=== PATIENT | male | born 1995 | race Caucasian/White ===

== ENCOUNTER 2024-10-15 15:05 | Outpatient (AMB) | payer BC, SELFPAY ==
--- NOTE | 2024-10-15 15:12 | A.OFFPC_ITS ---
Vital Signs 10/15/24 15:22 Height 5 ft 9 in Weight 197 lb BMI 29.1 BP 120/70 Blood Pressure Location Rt brachial Position Sitting Respiration 14 Pulse 89 Pulse Source Pulse Oximeter Temp 98.1 F Temp Source Oral Pulse Oximetry (%) 98 Oxygen Delivery Method Room Air Intake Visit Reasons: Annual PE Intake Note: establish care Allergies No Known Allergies Allergy (Verified 10/15/24 15:19) Medication List - Last Reconciled 10/15/24 by Kye Rossi MD No Known Home Meds Tobacco use date assessed: 10/15/24 Dental Screening Dental Screen Date: 10/15/24 Did you have a dental visit in the last 12 months?: Yes Did you have a dental problem in the last 6 months where you did not have access to dental care?: Yes HPI Annual PE HPI Details New?patient Prior?PCP: Leodan Flores MD Part of [facility] [place] Last?office?visit/CPE: > 2 yrs Acute?issue(s): Throat Clearing & he questions acid reflux. Allergies Poor sleep Difficulty concentrating Pt states had childhood dx of Concerta PMHx: Childhood ADHD SurgHx: [place] teeth FHx: Mom: ETOH. SocHx: Quit cigs 3 yrs ago. Uses nicotine gum. EtOH monthly 3-4 drEscobar No drugs [facility] Medical History (Updated 10/15/24 @ 15:44 by Chad Candelaria) Difficulty concentrating Depression Acute adjustment disorder with anxiety GERD (gastroesophageal reflux disease) Sinusitis Surgical History (Updated 10/15/24 @ 15:15 by Yesy Benavides CMA) [place] teeth extracted Family History Mother Substance abuse FH: mental illness Alcohol abuse Maternal Grandfather Substance abuse Cancer Alcohol abuse Family/Other Substance abuse Paternal Grandfather Stomach cancer Social History (Updated 10/15/24 @ 15:18 by Yesy Benavides CMA) Housing: Condominium Patient Tobacco Use Status: Never used Tobacco e-Cigarette/Vaping Use: Never Used Substance Use Type: Marijuana service: No Current occupational status: employed 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 1. Little interest or pleasure in doing things: several days 2. Feeling down, depressed, or hopeless: not at all 3. Trouble falling or staying asleep, or sleeping too much: several days 4. Feeling tired or having little energy: not at all 5. Poor appetite or overeating: not at all 6. Feeling bad about yourself - or that you are a failure or have let yourself or your family down: not at all 7. Trouble concentrating on things, such as reading the newspaper or watching television: several days 8. Moving or speaking so slowly that other people could have noticed. Or the opposite - being so fidgety or restless that you have been moving around a lot more than usual: not at all 9. Thoughts that you would be better off or of hurting yourself in some way: not at all Total score: 3 Depression Screening Interpretation: Negative Depression Screening Done: Yes 62112 - PHQ-9 Billing: Yes Source: Developed by Drs. Alcon Pimentel, Sophie Wilder, Keny Malone and colleagues, with an educational john from [employer]. Thrive Questionnaire Date Thrive assessed: 10/15/24 I am a: Patient What is your living situation today?: I have a steady place to live Within the past 12 months, did the food you bought not last and you didn't have the money to get more?: Never true Within the past 12 months, did you worry whether your food would run out before you got money to buy more?: Never true Do you have trouble paying for medicines?: No Do you have trouble getting transportation to medical appointments?: No Do you have trouble paying your heating and electricity bill?: No Do you have trouble taking care of your child, family member or friend?: No Do you have trouble with day-to-day activities such as bathing, preparing meals, shopping, managing finances, etc.?: No Are you currently unemployed and looking for a job?: No Are you interested in more education?: No Please select the resources that you would like help with: None Currently or been in a relationship where the following occur: I choose not to answer THRIVE Score: 0 AUDIT C Alcohol Use Questionnaire (AUDIT-C) 1. How often do you have a drink containing alcohol?: Monthly or less 2. How many drinks containing alcohol do you have on a typical day when you are drinking?: 3 or 4 3. How often do you have six or more drinks on one occasion?: Never Total Score: 2 CIERRA-7 AMB Questionnaire CIERAR-7 Date CIERRA - 7 assessed: 10/15/24 Feeling nervous, anxious, or on edge: 1 = Several days Not being able to stop or control worryin = Not at all Worrying too much about different things: 0 = Not at all Trouble relaxin = Several days Being so restless that it is hard to sit still: 0 = Not at all Becoming easily annoyed or irritable: 0 = Not at all Feeling afraid as if something awful might happen: 1 = Several days Total CIERRA-7 score (0-4 normal; 5-9 mild; 10-14 moderate; 15-21 severe): 3 Source: Developed by Drs. Alcon Pimentel, Sophie Wilder, Keny Malone and colleagues, with an educational john from [employer]. CIERRA-7 Assessment Billing CIERRA-7 Assessment Tool: CIERRA-7 Assessment 02521 Review of Systems Const Denies chills, Denies fatigue, Denies fever(s), Denies headache(s) and Denies weakness ENT Denies dizziness and Denies headache(s) Card Denies chest pain, Denies lightheadedness, Denies dyspnea and Denies other (Palpitations) Resp Denies cough, Denies dyspnea, Denies wheezing and Denies other ( shortness of breath) Musc Denies numbness and Denies tingling Neuro Denies dizziness, Denies headache(s), Denies numbness, Denies tingling, Denies paresthesias and Denies weakness Psych Denies anxiety and Denies depression Endo Denies fatigue Aller/Immun Denies wheezing Physical exam (Primary Care) Vital Signs: Last Vital Signs Temp 98.1 F 10/15/24 15:22 Pulse 89 10/15/24 15:22 Resp 14 10/15/24 15:22 BP 120/70 10/15/24 15:22 Pulse Ox 98 10/15/24 15:22 Oxygen Delivery Method Room Air 10/15/24 15:22 BMI result Body Mass Index 29.1 Tobacco/Smoking Status: Tobacco use Status Tobacco use date assessed 10/15/24 10/15/24 15:25 Patient Tobacco Use Status Never used Tobacco 10/15/24 15:25 e-Cigarette/Vaping Use Never Used 10/15/24 15:25 PHQ-9: PHQ-9 Score PHQ-9: Total score 3 10/15/24 15:30 Depression Screening Interpretation: Negative Thrive Assessment: Date of Thrive Assessment Date Thrive assessed 10/15/24 10/15/24 15:25 Currently or been in a relationship where the following occur: I choose not to answer Const General: no acute distress and well developed Nutritional Appearance: well nourished Orientation/consciousness: patient oriented x3 HENMI Head: Yes normocephalic and Yes atraumatic Eyes General: appearance normal, both eyes and all related structures Pupils: Equal, round and reactive pupils present EOM: EOMs intact bilaterally Resp Effort & Inspection: normal respiratory effort Auscultation: clear to auscultation bilaterally Cardio Rate: regular rate Rhythm: regular rhythm Heart sounds: S1 normal heart sound present, S2 normal heart sound present, no gallops, no murmurs and no rubs Neuro General: patient oriented x3 and gait normal Cranial nerves: Yes Equal, round and reactive pupils present Psych Affect: normal affect Coding Level of Care Code New Pt Level 3 (90072) Diagnoses GERD (gastroesophageal reflux disease) K21.9 Difficulty sleeping G47.9 Difficulty concentrating R41.840 Laboratory exam ordered as part of routine general medical examination Z00.00 Additional Codes CIERRA-7 Assessment Billing - CIERRA-7 Assessment Tool: CIERRA-7 Assessment 26077 ([id number]) PHQ-9 - 60167 - PHQ-9 Billing: Yes ([id number]) Assessment & Plan Assessment & Plan (1) GERD (gastroesophageal reflux disease): Code(s): K21.9 - Gastro-esophageal reflux disease without esophagitis Category: Medical Plan: History?of?GERD Patient?now?states?he?has?irritation?or ?tickle?in?throat?and?that?may?be?secondary?to?GERD Will?give?him?a?trial?famotidine. (2) Difficulty sleeping: Code(s): G47.9 - Sleep disorder, unspecified Category: Medical Plan: Encouraged?exercise?but?not?too?close?to?bedtime Encouraged?trying? to?pull?his?bedtime?to?an?earlier?time?in?the?evening?rather?than?mid?morning?li ke?03:00?o'clock He?can?try?some?melatonin No?symptoms?sound?like?sleep?apnea May?also?have?some?issues?with?anxiety We?will?continue?to?address?next?visit (3) Difficulty concentrating: Code(s): R41.840 - Attention and concentration deficit Category: Medical Plan: Will?make?a?referral?to?[facility] [place]?consult?team?for?evaluation Advised?patient?to?work?sleep?issues?for?now?as ?they?are?a?confounding?of?contributing?factor. (4) Laboratory exam ordered as part of routine general medical examination: Code(s): Z00.00 - Encounter for general adult medical examination without abnormal findings Category: Medical Plan: Check labs Orders: Orders Lipid Panel Today Z00.00 - Encounter for general adult medical examination without abnormal findings Microalbumin, Random (w Creat) Today I10 - Essential (primary) hypertension UA and rflx microscopic Today Z00.00 - Encounter for general adult medical examination without abnormal findings Comprehensive [place]. Panel Fast Today Z00.00 - Encounter for general adult medical examination without abnormal findings TSH reflex Free T4 Today Z00.00 - Encounter for general adult medical examination without abnormal findings Complete Blood Count Auto Diff Today Z00.00 - Encounter for general adult medical examination without abnormal findings
[2024-10-15 15:22] VITALS: BP 120/70; PULSE 89; RESP 14; TEMP 36.7; O2SAT 98; BMI 29.1
== END 2024-10-15 15:52 | disposition home or self-care (01) ==
PROVIDERS: PCP Hospitalist; Visit Provider Family Medicine
DX: K21.9 Gastro-esophageal reflux disease without esophagitis (principal); G47.9 Sleep disorder, unspecified; R41.840 Attention and concentration deficit; Z00.00 Encounter for general adult medical examination without abnormal findings

== ENCOUNTER → 2024-10-15 15:05 | Outpatient (BNVA) | payer BC, SELFPAY | PROVIDERS: PCP Hospitalist; Visit Provider Family Medicine | DX: Z00.00 Encounter for general adult medical examination without abnormal findings (principal); K21.9 Gastro-esophageal reflux disease without esophagitis; G47.9 Sleep disorder, unspecified; R41.840 Attention and concentration deficit; Z87.891 Personal history of nicotine dependence | CPT/HCPCS: 96127 ==

== ENCOUNTER 2025-03-01 11:04 | Outpatient (AMB) | payer BC, SELFPAY ==
--- NOTE | 2025-03-01 11:32 | A.OFFPSYCH_ITS ---
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 Pt has a histroy of ADHD being diagnosed in childhood and treated with Concerta from 2nd grade to high school. Pt reports trouble concentrating on TV and reading. He often gets lost with his mostly unstrucutred time. 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 He has trouble sleeping as he delays sleep or gets distracted and hours go by . He often is awake till 3 am and then whe very tired tries to go to sleep but may get a second wind; he will sleep in the mornings sometime. He is most concerned about being behind on work projects. He has trouble staying on track and can't finish projects. He has trouble with motivation. He completed the Adult ADHD scale (ASRS-v 1.1) and scored positive for 5 out of the 6 cardinal symptoms of ADHD Past Psychiatric History: outpatient treatment of ADHD by PCP when a child; He has been in therapy for short periods of time but did not find it particularly helpful. Pt has been on trial of SSRIs prozac and zoloft for anxiety without much benefit, He was alos tried on wellbutrin and felt worse, much more emotional . He was tried on buspar with no help; he reports propranolol was helpful. He reports concerta seemed to be helpful during childhood. Subjective Subjective Subjective Medication Compliance: No (he takes no regular meds ) Mental Status Exam Mental Status Exam Patient Appearance: Appropriate Patient Orientation: Person, Place, Time and Situation Level of Consciousness: Awake Patient Behavior: Appropriate, Cooperative, Restless and Poor Eye Contact Mood Description: Calm and Constricted Affect Description: Constricted Patient Cognition Impaired: No Ability to Follow Directions: Good Speech Pattern: Spontaneous Speech, Rambling and Excessive Memory Description: Intact Hallucinations: None Delusions: Not Present Thought Process: Distracted Thought Content: positive for Circumstantial, positive for Loose Associations and positive for Disorganized Judgement: Fair Assessment and Plan Assessment & Plan (1) ADHD: Status: Acute Qualifiers: Attention deficit-hyperactivity disorder type: combined inattentive- hyperactive Qualified Code(s): F90.2 - Attention-deficit hyperactivity disorder, combined type Code(s): F90.9 - Attention-deficit hyperactivity disorder, unspecified type (2) Difficulty sleeping: Status: Acute Code(s): G47.9 - Sleep disorder, unspecified Plan Labs ordered: vitamin B12 and folate vitamin D strongly urge patient to engage in therpay with an ADHD specialist who can help him organize his time, provide more structure to his day and work on self car including sleep hygiene given resources on how to find a therapist on Psychology today website and also a practice in [place] [facility] start concerta 36 mg in am daily hydroxyzine 25 mg at bedtime 20-30 minutes before sleep follow up with Dr Rossi Medications: New hydroxyzine HCl 25 mg PO BEDTIME 30 tabs 2RF methylphenidate HCl ER (Concerta) Partial Fill upon patient request. 36 mg PO QAM 30 tabs 0RF Orders: Orders Vitamin B12 and Folate Today F90.9 - Attention-deficit hyperactivity disorder, unspecified type, R41.840 - Attention and concentration deficit Vitamin D 25-OH Total Today E55.9 - Vitamin D deficiency, unspecified Counseling and coordination of Care Pt. Self Management counseling: Mod caffeine/ETOH intake, Nutrition education and improvement, Sleep hygiene and General coping skills Medication management counseling: Effectiveness, Side effects, Dosing range, Duration, Drug interaction and Adherence Diagnosis and Prognosis Counseling: Accuracy of diagnosis, Prognosis over time, Impact of diagnosis on life functions, Impact of family relationship, Problematic behaviors secondary to diagnosis and Adequacy of current interventions Details: I spent 70 minutes reviewing the record, seeing the patient and documenting in the medical record. Counseling provided to the patient/caregiver as outlined below. Addressed patient/caregiver concerns regarding current medication regime including effective adherence. Addressed patient/caregiver concerns regarding diagnosis and prognosis including accuracy of diagnosis, prognosis over time, impact of diagnosis. Addressed patient/caregiver concerns regarding impact of recent stressors. [facility] Medical History (Updated 03/01/25 @ 13:18 by Nhung Umana APRN) Difficulty concentrating Depression Acute adjustment disorder with anxiety GERD (gastroesophageal reflux disease) Sinusitis Surgical History (Updated 10/15/24 @ 15:15 by CORY Mcgregor) [place] teeth extracted Family History Mother Substance abuse FH: mental illness Alcohol abuse Maternal Grandfather Substance abuse Cancer Alcohol abuse Family/Other Substance abuse Paternal Grandfather Stomach cancer Social History (Updated 10/15/24 @ 15:18 by CORY Mcgregor) Housing: Condominium Patient Tobacco Use Status: Never used Tobacco e-Cigarette/Vaping Use: Never Used Substance Use Type: Marijuana service: No Current occupational status: employed 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
== END 2025-03-01 12:10 | disposition home or self-care (01) ==
LOC: HO.HOP 11:04
PROVIDERS: PCP Hospitalist; Visit Provider Clinical Nurse Specialist Psychiatric/Mental Health
DX: F90.2 Attention-deficit hyperactivity disorder, combined type (principal); G47.9 Sleep disorder, unspecified
CPT/HCPCS: 90792

== ENCOUNTER → 2025-03-01 11:04 | Outpatient (BNVA) | payer BC, SELFPAY | PROVIDERS: PCP Hospitalist; Visit Provider Clinical Nurse Specialist Psychiatric/Mental Health | DX: F90.9 Attention-deficit hyperactivity disorder, unspecified type (principal); G47.9 Sleep disorder, unspecified | CPT/HCPCS: 90792 ==

== ENCOUNTER 2025-09-17 15:53 | Outpatient (AMB) | payer BC, SELFPAY ==
--- NOTE | 2025-09-17 15:54 | MHC.PC.OV ---
Vital Signs 09/17/25 15:57 Height 5 ft 9 in Weight 196 lb 4 oz BMI 29.0 BP 136/78 Blood Pressure Location Rt brachial Position Sitting Respiration 13 Pulse 71 Pulse Source Pulse Oximeter Temp 97.0 F Temp Source Temporal Artery Scan Pulse Oximetry (%) 98 Oxygen Delivery Method Room Air Intake Visit Reasons: He can schedule his physical Intake Note: CPE Ent Physician Required: No Allergies No Known Allergies Allergy (Verified 09/17/25 15:55) Medication List - Last Reconciled 09/17/25 by Kye Rossi MD hydroxyzine HCl 25 mg PO BEDTIME methylphenidate HCl ER (Concerta) 36 mg PO QAM Tobacco use date assessed: 09/17/25 Dental Screening Dental Screen Date: 09/17/25 Did you have a dental visit in the last 12 months?: Yes Did you have a dental problem in the last 6 months where you did not have access to dental care?: No Was dental information given to patient?: Patient has dentist HPI He can schedule his physical HPI Details 30 y/o male presents for a CPE with f/u labs. No recent labs to review. Reports some acid reflux about once a month. Tries to see his dentist every 6 months. [facility] Medical History (Updated 03/01/25 @ 13:18 by Nhung Umana APRN) Difficulty concentrating Depression Acute adjustment disorder with anxiety GERD (gastroesophageal reflux disease) Sinusitis Surgical History (Updated 10/15/24 @ 15:15 by CORY Mcgregor) [place] teeth extracted Family History Mother Substance abuse FH: mental illness Alcohol abuse Maternal Grandfather Substance abuse Cancer Alcohol abuse Family/Other Substance abuse Paternal Grandfather Stomach cancer Social History (Updated 10/15/24 @ 15:18 by CORY Mcgregor) Housing: Condominium Patient Tobacco Use Status: Never used Tobacco e-Cigarette/Vaping Use: Never Used Second Hand Smoke Exposure: No Substance Use Type: Marijuana service: No Current occupational status: employed 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 1. Little interest or pleasure in doing things: not at all 2. Feeling down, depressed, or hopeless: not at all 3. Trouble falling or staying asleep, or sleeping too much: not at all 4. Feeling tired or having little energy: not at all 5. Poor appetite or overeating: not at all 6. Feeling bad about yourself - or that you are a failure or have let yourself or your family down: not at all 7. Trouble concentrating on things, such as reading the newspaper or watching television: not at all 8. Moving or speaking so slowly that other people could have noticed. Or the opposite - being so fidgety or restless that you have been moving around a lot more than usual: not at all 9. Thoughts that you would be better off or of hurting yourself in some way: not at all Total score: 0 Depression Screening Interpretation: Negative Depression Screening Done: Yes 93810 - PHQ-9 Billing: Yes Source: Developed by Drs. Alcon Pimentel, Sophie Wilder, Keny Malone and colleagues, with an educational john from [employer]. Thrive Questionnaire Date Thrive assessed: 09/17/25 I am a: Patient What is your living situation today?: I have a steady place to live Within the past 12 months, did the food you bought not last and you didn't have the money to get more?: Never true Within the past 12 months, did you worry whether your food would run out before you got money to buy more?: Never true Do you have trouble paying for medicines?: No Do you have trouble getting transportation to medical appointments?: No Do you have trouble paying your heating and electricity bill?: No Do you have trouble taking care of your child, family member or friend?: No Do you have trouble with day-to-day activities such as bathing, preparing meals, shopping, managing finances, etc.?: No Are you currently unemployed and looking for a job?: No Are you interested in more education?: No Currently or been in a relationship where the following occur: I choose not to answer THRIVE Score: 0 AUDIT C Alcohol Use Questionnaire (AUDIT-C) 1. How often do you have a drink containing alcohol?: Never 3. How often do you have six or more drinks on one occasion?: Never Total Score: 0 CIERRA-7 AMB Questionnaire CIERRA-7 Date CIERRA - 7 assessed: 09/17/25 Feeling nervous, anxious, or on edge: 0 = Not at all Not being able to stop or control worryin = Not at all Worrying too much about different things: 0 = Not at all Trouble relaxin = Not at all Being so restless that it is hard to sit still: 0 = Not at all Becoming easily annoyed or irritable: 0 = Not at all Feeling afraid as if something awful might happen: 0 = Not at all Total CIERRA-7 score (0-4 normal; 5-9 mild; 10-14 moderate; 15-21 severe): 0 Source: Developed by Drs. Alcon Pimentel, Sophie Wilder, Keny Malone and colleagues, with an educational john from [employer]. CIERRA-7 Assessment Billing CIERRA-7 Assessment Tool: CIERRA-7 Assessment 23098 Review of Systems Const Denies chills, Denies fatigue, Denies fever(s), Denies headache(s) and Denies weakness Eyes Denies change in vision ENT Denies dizziness, Denies headache(s), Denies hearing loss, Denies nasal congestion, Denies sinus pain, Denies sinus pressure and Denies sore throat Card Denies chest pain, Denies lightheadedness, Denies dyspnea and Denies other (palpitations) Resp Denies cough, Denies dyspnea and Denies wheezing GI Denies abdominal pain, Denies melena, Denies hematochezia, Denies change in bowel habits, Denies dyspepsia and Denies nausea Denies hematuria and Denies dysuria Musc Denies abnormal gait, Denies myalgias, Denies arthralgias, Denies numbness and Denies tingling Skin/Breast Denies rash, Denies unusual bruising and Denies wounds Neuro Denies abnormal gait, Denies dizziness, Denies headache(s), Denies memory loss, Denies numbness, Denies Sensory deficit (Neuro), Denies tingling and Denies weakness Psych Denies anxiety, Denies depression and Denies memory loss Endo Denies cold intolerance, Denies fatigue, Denies heat intolerance, Denies polydipsia and Denies polyuria Chandana/Lymph Denies easy bleeding and Denies easy bruising Aller/Immun Denies wheezing Physical exam (Primary Care) Vital Signs: Last Vital Signs Temp 97.0 F 09/17/25 15:57 Pulse 71 09/17/25 15:57 Resp 13 09/17/25 15:57 BP 136/78 09/17/25 15:57 Pulse Ox 98 09/17/25 15:57 Oxygen Delivery Method Room Air 09/17/25 15:57 BMI result Body Mass Index 29.0 Tobacco/Smoking Status: Tobacco use Status Tobacco use date assessed 09/17/25 09/17/25 15:59 Patient Tobacco Use Status Never used Tobacco 09/17/25 15:59 e-Cigarette/Vaping Use Never Used 09/17/25 15:59 PHQ-9: PHQ-9 Score PHQ-9: Total score 0 09/17/25 15:59 Depression Screening Interpretation: Negative Thrive Assessment: Date of Thrive Assessment Date Thrive assessed 09/17/25 09/17/25 15:59 Currently or been in a relationship where the following occur: I choose not to answer Const General: no acute distress, well developed, alert and awake Nutritional Appearance: well nourished Orientation/consciousness: patient oriented x3 HENMT Head: Yes normocephalic and Yes atraumatic Ears: hearing grossly normal bilaterally and TM's normal bilaterally General nose exam: Normal external nose present and Normal nares present Mouth: Normal oral and palatal mucosa present and moist mucous membranes Teeth and gingiva: dentition normal Throat: Yes posterior oropharynx normal Eyes General: appearance normal, both eyes and all related structures Pupils: Equal, round and reactive pupils present and Pupil accommodation reflex normal EOM: EOMs intact bilaterally Neck Neck: Yes normal visual inspection, Yes no lymphadenopathy and Yes trachea midline Thyroid: Thyroid normal Carotids: no bruits Lymphatic: no lymphadenopathy noted Chest Chest palpation & inspection: normal inspection of the chest Resp Effort & Inspection: normal respiratory effort Auscultation: clear to auscultation bilaterally Cardio Rate: regular rate Rhythm: regular rhythm Heart sounds: S1 normal heart sound present, S2 normal heart sound present, no gallops, no murmurs and no rubs Bruits: no abdominal aortic bruits and no carotid bruits GI Palpation (GI): No Abdominal aortic bruit present, Soft to palpation, nontender, No hepatosplenomegaly present and No Rebound tenderness present Auscultation: normal bowel sounds General: Yes no CVA tenderness Back/Spine/Pelvis Back: no CVA tenderness Cervical Spine: cervical ROM normal and No Cervical spine tenderness Thoracic/Lumbar Spine: thoraco-lumbar ROM normal, No pain with thoraco-lumbar ROM, No thoracic spinal tenderness and No lumbar spinal tenderness Skin Lesions: no lesions Rashes: no rashes Trauma: no lacerations or abrasions Wounds: no wounds Nails: normal Neuro General: patient oriented x3 Cranial nerves: Yes Equal, round and reactive pupils present Cognition (Neuro): normal cognition Gait exam (Neuro): Normal gait present Motor exam (neuro): 5/5 motor strength present throughout Sensory Exam: No Sensory deficit (Neuro) Deep tendon reflexes (DTR's): Right patellar reflex intensity grade: 2+ and Left patellar reflex intensity grade: 2+ Extrem General: Yes normal to inspection and No edema Psych Appearance: grossly normal Affect: normal affect Attitude: cooperative Thought process: Normal thought process present Coding Level of Care Code Est Pt Level 3 (10281) Diagnoses Adult general medical exam Z00.00 GERD (gastroesophageal reflux disease) K21.9 Attention deficit hyperactivity disorder (ADHD), combined type F90.2 Attention deficit-hyperactivity disorder type: combined inattentive-hyperactive Difficulty sleeping G47.9 Additional Codes CIERRA-7 Assessment Billing - CIERRA-7 Assessment Tool: CIERRA-7 Assessment 20575 ([id number]) PHQ-9 - 37950 - PHQ-9 Billing: Yes ([id number]) Assessment & Plan Assessment & Plan (1) Adult general medical exam: Code(s): Z00.00 - Encounter for general adult medical examination without abnormal findings Category: Medical Plan: 30-year-old male presents for complete physical exam Exam within normal limits Encouraged healthy diet with active lifestyle and plenty of exercise (2) GERD (gastroesophageal reflux disease): Code(s): K21.9 - Gastro-esophageal reflux disease without esophagitis Category: Medical Plan: Encouraged a strategy of anticipation. Take medication prior to triggers. (3) ADHD: Code(s): F90.9 - Attention-deficit hyperactivity disorder, unspecified type Category: Medical Qualifiers: Attention deficit-hyperactivity disorder type: combined inattentive-hyperactive Qualified Code(s): F90.2 - Attention-deficit hyperactivity disorder, combined type Plan: Patient had tried methylphenidate but this was causing some anxiety Trial Adderall XR 10 mg q.a.m. (4) Difficulty sleeping: Code(s): G47.9 - Sleep disorder, unspecified Category: Medical Plan: Had had difficulty sleeping and had tried hydroxyzine. Declines this for now He will let me know if it is still problem Orders: Orders Comprehensive [place]. Panel Fast Today Z00.00 - Encounter for general adult medical examination without abnormal findings UA CC w/rflx Micro + Cult Today Z00.00 - Encounter for general adult medical examination without abnormal findings Hepatitis B,C Profile Today Z11.3 - Encounter for screening for infections with a predominantly sexual mode of transmission Syphilis Screen Today Z11.3 - Encounter for screening for infections with a predominantly sexual mode of transmission Lipid Panel Today Z00.00 - Encounter for general adult medical examination without abnormal findings Microalbumin, Random (w Creat) Today I10 - Essential (primary) hypertension TSH reflex Free T4 Today Z00.00 - Encounter for general adult medical examination without abnormal findings CT NG by PCR Urine Today Z11.3 - Encounter for screening for infections with a predominantly sexual mode of transmission HIV Ab/Ag Today Z11.3 - Encounter for screening for infections with a predominantly sexual mode of transmission Medications: New dextroamphetamine-amphetamine 10 mg ER (Adderall XR) MassPat Verified. Partial Fill upon patient request. 10 mg PO QAM 30 caps 0RF 30 days F90.2 - Attention-deficit hyperactivity disorder, combined type Discontinued methylphenidate HCl ER (Concerta) Partial Fill upon patient request. Discontinued Reason: Doctor's Order 36 mg PO QAM 30 tabs 0RF
[2025-09-17 15:57] VITALS: BP 136/78; PULSE 71; RESP 13; TEMP 36.1; O2SAT 98; BMI 29.0
== END 2025-09-17 16:23 | disposition home or self-care (01) ==
PROVIDERS: PCP Family Medicine; Visit Provider Family Medicine
DX: Z00.00 Encounter for general adult medical examination without abnormal findings (principal); K21.9 Gastro-esophageal reflux disease without esophagitis; F90.2 Attention-deficit hyperactivity disorder, combined type; G47.9 Sleep disorder, unspecified

== ENCOUNTER → 2025-09-17 15:53 | Outpatient (BNVA) | payer BC, SELFPAY | PROVIDERS: PCP Family Medicine; Visit Provider Family Medicine | DX: Z13.31 Encounter for screening for depression (principal); Z13.39 Encounter for screening examination for other mental health and behavioral disorders | CPT/HCPCS: 96127 ==